=== PATIENT | female | born 1965 | race Caucasian/White ===

== ENCOUNTER → 2017-02-22 | Outpatient (CLI) | payer BC, OTHER | LOC: RAD 07:50 | DX: Z12.31 Encounter for screening mammogram for malignant neoplasm of breast (principal) ==

== ENCOUNTER → 2017-12-29 | Outpatient (CLI) | payer BC, OTHER | LOC: RAD 13:37 | DX: M54.31 Sciatica, right side (principal); M54.32 Sciatica, left side ==

== ENCOUNTER → 2020-10-09 | Outpatient (CLI) | payer BC, OTHER | LOC: LAB 13:41 | PROVIDERS: ATTEND Nurse Practitioner | DX: Z20.822 Contact with and (suspected) exposure to COVID-19 (principal) ==